=== PATIENT | female | born 1950 | race Caucasian/White ===

== ENCOUNTER 2025-01-20 08:46 | Inpatient (IN) | payer OTHER, MEDICAID ==
[~2025-01-20] VITALS: Ht 160 cm; Wt 79.5 kg
--- NOTE | 2025-01-20 09:05 | ED.PDOC ---
BRASS BOBBIN WINDER HPI Comments THIS IS A 74 YEAR OLD FEMALE PRESENTING TO THE ED WITH CHIEF COMPLAINT OF VAGINAL BLEEDING. DAUGHTER REPORTS THAT THE PATIENT HAS BEEN EXPERIENCING CONTINUOUS VAGINAL BLEEDING FOR THE PAST 3 DAYS. PATIENT RELAYS THAT SHE HAS BEEN EXPERIENCING ASSOCIATED ABDOMINAL CRAMPING, HEADACHE, AND GENERALIZED WEAKNESS. DAUGHTER STATES THAT THE PATIENT HAS ALREADY MADE AN APPOINTMENT WITH DR. CLIFF CORDOVA DUE TO HAVING THIS CONCERN INTERMITTENTLY FOR THE PAST MONTH, ONLY WORSENING FOR THE PAST 3 DAYS. PATIENT DENIES ANY FALL, INJURY, CHEST PAIN, SOB, DIZZINESS, N/V, DYSURIA, OR RECTAL BLEEDING. NO OTHER SYMPTOMS REPORTED AT THIS TIME OF CARE. Chief Complaint: Vaginal Bleed Time Seen by MD: 09:00 Reviewed Notes: Nurses Notes, Medications, Allergies Allergies: Coded Allergies: Iodine (Verified Allergy, Unknown, 01/20/25) Information Source: Patient, Relative (Child) Mode of Arrival: Ambulatory Timing: Days, Weeks Prehospital treatment: None Severity: Moderate Bleeding Quality: Bright Red Onset Of Mass/Bleeding: Spontaneous Sexual Activity: Neither Last Consensual Spade: None Control: None Associated Signs and Symptoms: Vaginal Bleeding, Abdominal Pain, Cramping Past Medical History PAST MEDICAL HISTORY: Anemia, CVA, DM, High Lipids, HTN, Seizures Surgical History (Other): 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: Denies all COMBINER OPERATOR Hx Family History Family History: Reviewed,noncontributory to illness Social History Smoker: Non-Smoker Alcohol: Denies ETOH Use Drugs: Denies Drug Use Lives In: Home, [facility] Constitutional: reports: weakness; denies: chills, diaphoresis, fatigue, fever, malaise, sweats, others EENTM: denies: blurred vision, double vision, ear bleeding, ear discharge, ear drainage, ear pain, ear ringing, eye pain, eye redness, hearing loss, mouth pain, mouth swelling, nasal discharge, nose bleeding, nose congestion, nose pain, photophobia, tearing, throat pain, throat swelling, voice changes, others Respiratory: denies: cough, hemoptysis, orthopnea, SOB at rest, shortness of breath, SOB with excertion, stridor, wheezing, others Cardiovascular: denies: chest pain, dizzy spells, diaphoresis, Dyspnea on exertion, edema, irregular heart beat, left arm pain, lightheadedness, palpitations, PND, syncope, others Gastrointestinal: denies: abdomen distended, abdominal pain, blood streaked bowels, constipated, diarrhea, dysphagia, difficulty swallowing, hematemesis, melena, nausea, poor appetite, poor fluid intake, rectal bleeding, rectal pain, vomiting, others Genitourinary: reports: abnormal vagina bleeding, pain (PELVIC ); denies: burning, dyspareunia, dysuria, flank pain, frequency, hematuria, incontinence, , vagina discharge, urgency, others Neurological: reports: headache; denies: dizziness, fainting, left sided numbness, left sided weakness, numbness, paresthesia, pre-existing deficit, right sided numbness, right sided weakness, seizure, speech problems, tingling, tremors, weakness, others Musculoskeletal: denies: back pain, gout, joint pain, joint swelling, muscle pain, muscle stiffness, neck pain, others Integumetry: denies: bruises, change in color, change in hair/nails, dryness, laceration, lesions, lumps, rash, wounds, others Allergic/Immunocompromised: denies: Difficulty Healing, Frequent Infections, Hives, Itching, others Hematologic/Lymphatic: denies: anemia, blood clots, easy bleeding, easy bruising, swollen glands, others Endocrine: denies: excessive hunger, excessive sweating, excessive thirst, excessive urination, flushing, intolerance to cold, intolerance to heat, unexplained weight gain, unexplained weight loss, others Psychiatric: denies: anxiety, bipolar disorder, depression, hopeless, panic disorder, schizophrenia, sleepless, suicidal, others All Other Systems: Reviewed and Negative Physical Exam General Appearance: No Apparent Distress, Normal HEENT: Normal ENT Inspection, PERRL/EOMI, Pharynx Normal, TMs Normal Neck: Full Range of Motion, Non-Tender, Normal, Normal Inspection Respiratory: Chest Non-Tender, Lungs Clear, No Accessory Muscle Use, No Respiratory Distress, Normal Breath Sounds Cardiovascular: No Edema, No JVD, No Murmur, No Gallop, Normal Peripheral Pulses, Regular Rate/Rhythm Breast Exam: Deferred Gastrointestinal: No Organomegaly, Non Tender, No Pulsatile Mass, Normal Bowel Sounds, Soft Genitalia: Deferred Pelvic: Normal External Exam, Tender Uterus, Vaginal Bleeding (WITH PELVIC EXAM, NO VAGINAL BLOOD CLOTS. ) Rectal: Deferred Extremities: No calf tenderness, Normal capillary refill, Normal inspection, Normal range of motion, Non-tender, No pedal edema Musculoskeletal : Apperance: Normal Neurologic: Alert, box finisher II-XII nml as Tested, No Motor Deficits, Normal Affect, Normal Mood, No Sensory Deficits Cerebellar Function: Normal Reflexes: Normal Skin: Dry, Normal Color, Warm Peripheral Pulses: 2+ carotid (R), 2+ carotid (L) Lymphatic: No Adenopathy Was a procedure done? Was a procedure done?: Yes Sedation Sedation?: No Pelvic Exam Vaginal Discharge: None Vaginal Lesions: None Bleeding Quality: Bright Red Cervix: os closed Differential Diagnosis (COMBINER OPERATOR) Vaginal Bleeding: Blood Loss Anemia, Myomatous Uterus, UTI, Other (DUB) Vaginal Discharge: UTI X-Ray, Labs, Meds, VS Vital Signs Date Time Temp Pulse Resp B/P (MAP) Pulse Ox O2 Delivery O2 Flow Rate FiO2 01/20/25 12:27 81 18 98 Room Air* 0 21 01/20/25 11:51 61 18 96 Room Air 01/20/25 11:51 81 18 131/69 (89) 98 01/20/25 08:48 98.1 74 18 161/80 93 98.1 Lab Test 01/20/25 09:11 01/20/25 09:04 Range/Units White Blood Count 7.2 4.4-10.8 10^3/uL Red Blood Count 5.35 H 4.0-5.20 10^6/uL Hemoglobin 14.9 12.2-16.2 g/dL Hematocrit 44.2 36.0-46.0 % Mean Corpuscular Volume 82.6 80.0-100.0 fL Mean Corpuscular Hemoglobin 27.9 L 28.0-32.0 pg Mean Corpuscular Hemoglobin Concent 33.8 32.0-36.0 g/dL Red Cell Distribution Width 14.1 11.8-14.3 % Platelet Count 178 140-450 10^3/uL Mean Platelet Volume 9.1 6.9-10.8 fL Neutrophils (%) (Auto) 67.5 37.0-80.0 % Lymphocytes (%) (Auto) 18.0 10.0-50.0 % Monocytes (%) (Auto) 10.7 0.0-12.0 % Eosinophils (%) (Auto) 2.9 0.0-7.0 % Basophils (%) (Auto) 0.9 0.0-2.0 % Neutrophils # (Auto) 4.9 1.6-8.6 10 ^3/uL Lymphocytes # (Auto) 1.3 0.4-5.4 10 ^3/uL Monocytes # (Auto) 0.8 0-1.3 10 ^3/uL Eosinophils # (Auto) 0.2 0-0.8 10 ^3/uL Basophils # (Auto) 0.1 0-0.2 10 ^3/uL Nucleated Red Blood Cells 0.1 % Prothrombin Time 11.7 9.3-11.8 sec Prothrombin Time INR 1.12 0.9-1.15 Sodium Level 140 136-145 mmol/L Potassium Level 4.0 3.5-5.1 mmol/L Chloride Level 104 98-107 mmol/L Carbon Dioxide Level 26 20-31 mmol/L Anion Gap 10 5-15 Blood Urea Nitrogen 22 9-23 mg/dL Creatinine 1.15 H 0.550-1.02 mg/dL Glomerular Filtration Rate Calc 50 >90 mL/min BUN/Creatinine Ratio 19.1 10.0-20.0 Serum Glucose 189 H 74-106 mg/dL Calcium Level 9.9 8.7-10.4 mg/dL Total Bilirubin 0.5 0.2-1.0 mg/dL Aspartate Amino Transferase (AST) 18 13-40 U/L Alanine Aminotransferase (ALT) 14 7-40 U/L Alkaline Phosphatase 66 46-116 U/L Total Protein 6.9 5.7-8.2 g/dL Albumin 4.5 3.2-4.8 g/dL Urine Color Light-red Yellow Urine Clarity Ex.turbid Clear Urine pH 5.5 5.0-9.0 Urine Specific [place] 1.019 1.001-1.035 Urine Protein 1+ H Negative Urine Ketones Negative Negative Urine Blood 3+ H Negative /uL Urine Nitrite Negative Negative Urine Bilirubin Negative Negative Urine Urobilinogen Normal Negative mg/dL Urine Leukocyte Esterase 2+ Negative /uL Urine RBC 2394 0 - 4 /hpf Urine WBC Clumps Present None Seen /hpf Urine Microscopic WBC 980 H 0-5 /HPF Urine Squamous Epithelial Cells Few <5 /hpf Urine Bacteria None seen None Seen /hpf Urine Hyaline Casts Many 0 - 2 /lpf Urine Glucose 4+ H Normal mg/dL Current Medications Medications (Trade) Dose Ordered Sig/Melecio Route Start Time Stop Time Status Last Admin Sodium Chloride 500 ml @ 500 mls/hr Q1H ONCE IV 01/20/25 11:30 01/20/25 12:29 DC 01/20/25 11:54 Ceftriaxone Sodium 50 ml @ 100 mls/hr ONCE ONCE IV 01/20/25 11:30 01/20/25 11:59 DC 01/20/25 11:41 Sodium Chloride 1,000 ml @ 150 mls/hr Q6H40M ONCE IV 01/20/25 11:30 01/20/25 18:09 01/20/25 11:55 PATIENT: ADRIEL OMALLEYT: [id number]: [id number] : 1950 LOC: ER ROOM / BED: / AGE / SEX: 74 / F ADM STATUS: REG ER SERVICE 3 ORDERING PHYSICIAN: NITHIN SORENSEN PROCEDURE(s): PELUS - PELVIC REASON: VAGINAL BLEEDING ORDER NUMBER(s): [id number], ACCESSION NUMBER(s): [id number] INDICATION: VAGINAL BLEEDING TECHNIQUE: Multiple real-time grayscale transabdominal sonographic images along with color and duplex Doppler of the uterus and ovaries were obtained. COMPARISON: None FINDINGS: The uterus measures 6.5 x 4.0 x 2.5 cm. The endometrial stripe measures 0.2 cm. Right ovary is not visualized Left ovary measures 2.1 x 1.3 x 1.7 cm with normal Doppler color flow IMPRESSION: 1. Grossly unremarkable pelvic ultrasound. ATED BY: TAVON DONOHUE MD DICTATED DATE/TIME: 01/20/251044 SIGNED BY: TAVON DONOHUE MD SIGNED DATE/TIME: 01/20/251044 CC: X-Ray, Labs, Meds, VS Comment EXTERNAL MEDICAL RECORDS REVIEWED: [NONE] INDEPENDENT HISTORIANS: DAUGHTER SOCIAL DETERMINANTS OF HEALTH: [NONE] LABS ORDERED: NONE REVIEWED AND INTERPRETED RESULTS: NONE IMAGING ORDERED: NONE TREATMENTS ORDERED: 0.9 NS, ROCEPHIN 1GM IVPB PROCEDURES PERFORMED: NONE CRITICAL CARE TIME: NONE I HAVE DISCUSSED THE PATIENT WITH THE ATTENDING PHYSICIAN DR. BUSTOS AND HE AGREES WITH THE PATIENT'S PLAN OF CARE AND DISPOSITION. BASED ON HISTORY OF PRESENT ILLNESS, PHYSICAL EXAM, AND HISTORY OF RECURRENT VAGINAL BLEEDING, PATIENT WILL BE ADMITTED TO THE HOSPITAL FOR FURTHER IN PATIENT EVALUATION AND TREATMENT. Time of 1ST Reevaluation: 11:10 Reevaluation 1ST: Unchanged Patient Education/Counseling: Diagnosis, Treatment Family Education/Counseling: Diagnosis, Treatment Departure 1 Departure Time of Disposition: 11:10 Impression: Primary Impression: Vaginal bleeding Additional Impression: Complicated UTI (urinary tract infection) Disposition: 09 ADMITTED INPATIENT Condition: Serious Critical Care Note Critical Care Time?: No Stability Stability form required: Yes Unstable for transfer: Requires medication, ED Physician Assesment, Possible rapid decline Heart Score Heart Score: Heart Score Response (Comments) Value History N/A 0 EKG N/A 0 Age N/A 0 Risk Factors N/A 0 Troponin N/A 0 Total 0 I personally scribed for NITHIN SORENSEN ([email or web address]) on 01/20/25 at 09:05. Electronically submitted by Nael Gillette ([email or web address]). I personally scribed for NITHIN SORENSEN ([email or web address]) on 01/20/25 at 11:11. Electronically submitted by Nael Gillette ([email or web address]). NITHIN SORENSEN Jan 20, 2025 09:05
[2025-01-20 09:37] LABS: Hematocrit 44.2 % (36.0-46.0); Hemoglobin 14.9 g/dL (12.2-16.2); Mean Corpuscular Hemoglobin 27.9 pg (28.0-32.0); Mean Corpuscular Volume 82.6 fL (80.0-100.0); Nucleated Red Blood Cells % 0.1 %
[2025-01-20 09:52] LABS: Alanine Aminotransferase 14 U/L (7-40); Alkaline Phosphatase 66 U/L (46-116); Anion Gap 10 (5-15); BUN/Creatinine Ratio 19.1 (10.0-20.0); Blood Urea Nitrogen 22 mg/dL (9-23); Calcium 9.9 mg/dL (8.7-10.4); Carbon Dioxide 26 mmol/L (20-31); Chloride 104 mmol/L (98-107); Potassium 4.0 mmol/L (3.5-5.1); Sodium 140 mmol/L (136-145); Total Protein 6.9 g/dL (5.7-8.2)
[2025-01-20 09:53] LABS: Albumin 4.5 g/dL (3.2-4.8); Bilirubin, Total 0.5 mg/dL (0.2-1.0); Glucose 189 mg/dL (74-106); INR 1.12 (0.9-1.15); Prothrombin Time 11.7 sec (9.3-11.8)
[2025-01-20 10:12] LABS: Urine Protein, UAD 1+ (Negative); Urine WBC Clumps PRESENT /hpf (None Seen)
--- NOTE | 2025-01-20 10:47 | DVH ---
INDICATION: VAGINAL BLEEDING TECHNIQUE: Multiple real-time grayscale transabdominal sonographic images along with color and duplex Doppler of the uterus and ovaries were obtained. COMPARISON: None FINDINGS: The uterus measures 6.5 x 4.0 x 2.5 cm. The endometrial stripe measures 0.2 cm. Right ovary is not visualized Left ovary measures 2.1 x 1.3 x 1.7 cm with normal Doppler color flow IMPRESSION: 1. Grossly unremarkable pelvic ultrasound.
[2025-01-20] MEDS: cefTRIAXone 1GM/50ML D5W 50 ML IV ONE (11:41)
[2025-01-20] MEDS: SODIUM CHLORIDE 0.9% 500 ML IV ONE (11:54)
[2025-01-20] MEDS: SODIUM CHLORIDE 0.9% 1,000 ML IV ONE (11:55)
[2025-01-20] MEDS ORDERED: DOCUSATE SOD 100 MG CAP PO PRN (12:15)
[2025-01-20] MEDS ORDERED: HYDROcodone-ACET 5/325MG TAB PO PRN (12:15)
[2025-01-20] MEDS ORDERED: ACETAMINOPHEN 325 MG TAB PO PRN (12:15)
[2025-01-20] MEDS ORDERED: ONDANSETRON HCL 4 MG/2 ML VIAL IV PRN (12:15)
[2025-01-20 12:27] VITALS: PULSE 81; RESP 18; O2SAT 98
[2025-01-20] MEDS ORDERED: CITA10TA5 PO (12:33)
[2025-01-20] MEDS ORDERED: LEVE500T3 PO (12:33)
[2025-01-20] MEDS ORDERED: GAB100C PO (12:33)
[2025-01-20] MEDS ORDERED: FENO48TA13 PO (12:33)
[2025-01-20] MEDS ORDERED: DAPA1TAB4 PO (12:33)
[2025-01-20] MEDS ORDERED: APIX5TAB PO (12:33)
[2025-01-20] MEDS ORDERED: DONE5TAB80 PO (12:33)
[2025-01-20] MEDS ORDERED: ATOR-47 PO (12:33)
[2025-01-20] MEDS ORDERED: MEMA7CAP8 PO (12:33)
[2025-01-20] MEDS ORDERED: ROPI0.5T26 PO (12:33)
--- NOTE | 2025-01-20 12:51 | DVHHP2 ---
History of Present Illness Reason for Visit: Vaginal bleeding History of Present Illness Carlie Rothman is a 74-year-old female with past medial history of hypertension, hyperlipidemia, diabetes, seizures, atrial fibrillation and CVA, who came to the hospital for vaginal bleeding. Patient states she has been experiencing intermi ttent, light, vaginal bleeding for 3 months. She has an appointment with an CURRICULUM AND ASSESSMENT COORDINATOR on 02/04/2025. She states she began bleeding again 3 days ago and it is heavier than normal, did not stop, and she began passing clots last night which scared her and prompted her to come to the hospital. Patient is on Eliquis due to her atrial fibrillation and H/O CVA, she is followed by Dr. Carter for cardiology. 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: CVA Endocrine: Diabetes Smoke: No ALCOHOL: none Drugs: None Lives: Other (Assisted living) Review of Systems Constitutional: No: Fever, Chills, Sweats, Weakness, Malaise, Other Eyes: No: Pain, Vision change, Conjunctivae inflammation, Eyelid inflammation, Other, Redness ENT: No: Ear pain, Ear discharge, Nose pain, Nose discharge, Nose congestion, Mouth pain, Mouth swelling, Throat pain, Throat swelling, Other Respiratory: No: Cough, Dry, Shortness of breath, SOB with excertion, Wheezing, Hemoptysis, Pleuritic Pain, Sputum, Wheezing, Other Cardiovascular: No: Chest Pain, Palpitations, Orthopnea, Paroxysmal Noc. Dyspnea, Edema, Lt Headedness, Other Gastrointestinal: Abdominal Pain, Other (vaginal bleeding); No: Nausea, Vomiting, Diarrhea, Constipation, Melena, Hematochezia Genitourinary: No Dysuria, No Frequency, No Incontinence, No Hematuria, No Retention, No Other Musculoskeletal: No: other, neck pain, shoulder pain, arm pain, back pain, hand pain, leg pain, foot pain Skin: No: Rash, Lesions, Jaundice, Bruising, Other Neurological: No: Weakness, Numbness, Incoordination, Change in speech, Confusion, Seizures, Other Allergies: Coded Allergies: Iodine (Verified Allergy, Unknown, 01/20/25) Medications Current Medications Medications Dose Ordered Sig/Melecio Route Start Time Stop Time Status Last Admin Dose Admin Acetaminophen/ Hydrocodone Bitart 1 tab Q4HP PRN PO 01/20/25 12:15 UNV Ondansetron HCl 4 mg Q4HP PRN IV 01/20/25 12:15 UNV Docusate Sodium 100 mg BIDPRN PRN PO 01/20/25 12:15 UNV Acetaminophen 650 mg Q6HP PRN PO 01/20/25 12:15 UNV Exam Vital Signs Vital Signs Date Time Temp Pulse Resp B/P (MAP) Pulse Ox O2 Delivery O2 Flow Rate FiO2 01/20/25 12:27 81 18 98 Room Air* 0 21 01/20/25 11:51 131/69 (89) 01/20/25 08:48 98.1 98.1 General Appearance: Alert, Oriented X3, Cooperative, mild distress HEENT: Atraumatic, PERRLA Respiratory: Clear to auscultation, Normal air movement Cardiovascular: Regular rate, Normal S1, Normal S2, No murmurs Abdominal: Normal bowel sounds, Soft Extremities: No clubbing, No cyanosis, No edema, Normal pulses, No tenderness/swelling Skin: No rashes, No breakdown, No significant lesion Neuro: Normal gait, Normal speech, Strength at 5/5 X4 ext, Normal tone Psych/Mental Status: Mental status NL, Mood NL Labs/Xrays Labs Test 01/20/25 09:11 01/20/25 09:04 Range/Units White Blood Count 7.2 4.4-10.8 10^3/uL Red Blood Count 5.35 H 4.0-5.20 10^6/uL Hemoglobin 14.9 12.2-16.2 g/dL Hematocrit 44.2 36.0-46.0 % Mean Corpuscular Volume 82.6 80.0-100.0 fL Mean Corpuscular Hemoglobin 27.9 L 28.0-32.0 pg Mean Corpuscular Hemoglobin Concent 33.8 32.0-36.0 g/dL Red Cell Distribution Width 14.1 11.8-14.3 % Platelet Count 178 140-450 10^3/uL Mean Platelet Volume 9.1 6.9-10.8 fL Neutrophils (%) (Auto) 67.5 37.0-80.0 % Lymphocytes (%) (Auto) 18.0 10.0-50.0 % Monocytes (%) (Auto) 10.7 0.0-12.0 % Eosinophils (%) (Auto) 2.9 0.0-7.0 % Basophils (%) (Auto) 0.9 0.0-2.0 % Neutrophils # (Auto) 4.9 1.6-8.6 10 ^3/uL Lymphocytes # (Auto) 1.3 0.4-5.4 10 ^3/uL Monocytes # (Auto) 0.8 0-1.3 10 ^3/uL Eosinophils # (Auto) 0.2 0-0.8 10 ^3/uL Basophils # (Auto) 0.1 0-0.2 10 ^3/uL Nucleated Red Blood Cells 0.1 % Prothrombin Time 11.7 9.3-11.8 sec Prothrombin Time INR 1.12 0.9-1.15 Sodium Level 140 136-145 mmol/L Potassium Level 4.0 3.5-5.1 mmol/L Chloride Level 104 98-107 mmol/L Carbon Dioxide Level 26 20-31 mmol/L Anion Gap 10 5-15 Blood Urea Nitrogen 22 9-23 mg/dL Creatinine 1.15 H 0.550-1.02 mg/dL Glomerular Filtration Rate Calc 50 >90 mL/min BUN/Creatinine Ratio 19.1 10.0-20.0 Serum Glucose 189 H 74-106 mg/dL Calcium Level 9.9 8.7-10.4 mg/dL Total Bilirubin 0.5 0.2-1.0 mg/dL Aspartate Amino Transferase (AST) 18 13-40 U/L Alanine Aminotransferase (ALT) 14 7-40 U/L Alkaline Phosphatase 66 46-116 U/L Total Protein 6.9 5.7-8.2 g/dL Albumin 4.5 3.2-4.8 g/dL Urine Color Light-red Yellow Urine Clarity Ex.turbid Clear Urine pH 5.5 5.0-9.0 Urine Specific [place] 1.019 1.001-1.035 Urine Protein 1+ H Negative Urine Ketones Negative Negative Urine Blood 3+ H Negative /uL Urine Nitrite Negative Negative Urine Bilirubin Negative Negative Urine Urobilinogen Normal Negative mg/dL Urine Leukocyte Esterase 2+ Negative /uL Urine RBC 2394 0 - 4 /hpf Urine WBC Clumps Present None Seen /hpf Urine Microscopic WBC 980 H 0-5 /HPF Urine Squamous Epithelial Cells Few <5 /hpf Urine Bacteria None seen None Seen /hpf Urine Hyaline Casts Many 0 - 2 /lpf Urine Glucose 4+ H Normal mg/dL TECHNIQUE: Multiple real-time grayscale transabdominal sonographic images along with color and duplex Doppler of the uterus and ovaries were obtained. FINDINGS: The uterus measures 6.5 x 4.0 x 2.5 cm. The endometrial stripe measures 0.2 cm. Right ovary is not visualized Left ovary measures 2.1 x 1.3 x 1.7 cm with normal Doppler color flow IMPRESSION: 1. Grossly unremarkable pelvic ultrasound. SEPSIS Sepsis Screen Date sepsis recognized/suspect: Jan 20, 2025 Time Sepsis recognized/suspect: 1228 Recent Procedure: No On Antibiotic Therapy: No Respiratory Rate >20: No Heart Rate >90: No Temp<36 C (96.8 F) or >38.3 C: No SBP <90 or MAP <65 mmHG: No New Acute Mental Status Change: No Is the patient on CPAP, BIPAP,: No Physician Orders Pelvic (01/20/25 09:04) Heplock Iv (01/20/25 ) Urine Bacterial Culture (01/20/25 11:22) Sodium Chloride 0.9% (01/20/25 11:30) Admit (01/20/25 12:14) Code Status (01/20/25 12:14) 2 Gm Sodium Diet (01/20/25 Lunch) Hydrocodone-Acet 5/325mg Tab (Dinosaur 5/32 (01/20/25 12:15) Ondansetron Hcl (Zofran) (01/20/25 12:15) Docusate Sodium Capsule (Colace Capsule) (01/20/25 12:15) Complete Blood Count (01/21/25 04:00) Comprehensive Metabolic Panel (01/21/25 04:00) Condition: Serious (01/20/25 12:14) Acetaminophen Tablet (Tylenol Tablet) (01/20/25 12:15) * Clinical Product Specialist Consultation (01/20/25 12:14) Vital Signs Date Time Temp Pulse Resp B/P (MAP) Pulse Ox O2 Delivery O2 Flow Rate FiO2 01/20/25 12:27 81 18 98 Room Air* 0 21 01/20/25 11:51 61 18 96 Room Air 01/20/25 11:51 81 18 131/69 (89) 98 01/20/25 08:48 98.1 74 18 161/80 93 98.1 Laboratory Tests Test 01/20/25 09:11 White Blood Count 7.2 10^3/uL (4.4-10.8) Medications Medications Dose Ordered Sig/Melecio Route Start Time Stop Time Status Last Admin Dose Admin Ceftriaxone Sodium 50 ml @ 100 mls/hr ONCE ONCE IV 01/20/25 11:30 01/20/25 11:59 DC 01/20/25 11:41 100 MLS/HR Sodium Chloride 500 ml @ 500 mls/hr Q1H ONCE IV 01/20/25 11:30 01/20/25 12:29 DC 01/20/25 11:54 500 MLS/HR Sodium Chloride 1,000 ml @ 150 mls/hr Q6H40M ONCE IV 01/20/25 11:30 01/20/25 18:09 01/20/25 11:55 150 MLS/HR Assessment/Plan Assessment/Plan Assessment: Vaginal bleeding, Hyperglycemia, Hypertension, Hyperlipidemia, Diabetes, Seizures, Plan: Admit to Med-Surg, CURRICULUM AND ASSESSMENT COORDINATOR consult, Manage/Monitor H&H closely, Accu checks Q AC&HS with sliding scale, Home medications reconciled, Plan discussed with: Patient My Orders Orders - PEGGY [facility] Procedure Category Date Status Time Admit ADMIT 01/20/25 Transmitted 12:14 Code Status CODE 01/20/25 Transmitted 12:14 2 Gm Sodium Diet DIET 01/20/25 Transmitted Lunch Hydrocodone-Acet PHA 01/20/25 Logged 5/325mg Tab (Dinosaur 12:15 Ondansetron Hcl PHA 01/20/25 Logged (Zofran) 12:15 Docusate Sodium PHA 01/20/25 Logged Capsule (Colace 12:15 Complete Blood Count LAB 01/21/25 Verified 04:00 Comprehensive LAB 01/21/25 Verified Metabolic Panel 04:00 Condition: Serious ZACH 01/20/25 In Process 12:14 Acetaminophen Tablet PHA 01/20/25 Logged (Tylenol Tablet) 12:15 * Clinical Product Specialist Consultation CONS 01/20/25 Transmitted 12:14 Date of Service: Jan 20, 2025 Billing Provider: PEGGY KAISER Common Visit Codes: [id number] INP/OBS CARE (MOD) PEGGY KAISER Jan 20, 2025 12:51
[2025-01-20] MEDS ORDERED: DEXTROSE (50%) 50ML SYRG IV PRN (17:45)
[2025-01-20 19:30] VITALS: PULSE 74; RESP 18; O2SAT 94
[2025-01-20] MEDS: ACCU-CHEK COMFORT CURVE STRIP VI SCH (22:00)
[2025-01-20] MEDS: levETIRAcetam 500 MG TAB PO SCH (22:47)
[2025-01-20] MEDS: APIXABAN 5 MG TAB PO SCH (22:47)
[2025-01-20] MEDS: InsuLIN REG 1unit/0.01ml Soln (100units/ml) SC SCH (22:48)
[2025-01-20 23:49] VITALS: BP 155/65; PULSE 62; RESP 18; TEMP 98.2; O2SAT 91
[2025-01-21] VITALS (8 sets, daily range): BP systolic 152–163; BP diastolic 65–89; PULSE 62–86; RESP 14–18; TEMP 97.9–98.6; O2SAT 91–95
[2025-01-21 05:52] LABS: Hematocrit 42.2 % (36.0-46.0); Hemoglobin 14.2 g/dL (12.2-16.2); Mean Corpuscular Hemoglobin 27.7 pg (28.0-32.0); Mean Corpuscular Volume 82.2 fL (80.0-100.0); Nucleated Red Blood Cells % 0.1 %
[2025-01-21 06:18] LABS: Alanine Aminotransferase 12 U/L (7-40); Albumin 4.1 g/dL (3.2-4.8); Alkaline Phosphatase 60 U/L (46-116); Anion Gap 11 (5-15); BUN/Creatinine Ratio 24.0 (10.0-20.0); Calcium 8.9 mg/dL (8.7-10.4); Carbon Dioxide 24 mmol/L (20-31); Potassium 3.7 mmol/L (3.5-5.1); Sodium 142 mmol/L (136-145); Total Protein 6.5 g/dL (5.7-8.2)
[2025-01-21 06:19] LABS: Bilirubin, Total 0.4 mg/dL (0.2-1.0)
[2025-01-21 06:25] LABS: Blood Urea Nitrogen 25 mg/dL (9-23); Chloride 107 mmol/L (98-107); Glucose 150 mg/dL (74-106)
[2025-01-21] MEDS: InsuLIN REG 1unit/0.01ml Soln (100units/ml) SC SCH (06:41)
[2025-01-21] MEDS: MEMANTINE HYDROCHLORIDE PO SCH (09:37)
[2025-01-21] MEDS: Dapagliflozin Propanediol (Farxiga) 10 MG TABLET PO SCH (09:37)
[2025-01-21] MEDS: ROPINIROLE HYDROCHLORIDE 0.5 MG PO SCH (09:37)
[2025-01-21] MEDS: DONEPEZIL HYDROCHLORIDE 5 MG TAB PO SCH (09:43)
[2025-01-21] MEDS: CITALOPRAM HYDROBR 20 MG TAB PO SCH (09:45)
--- NOTE | 2025-01-21 14:10 | DVHPN2 ---
Subjective Bleeding improving. Reviewed: H&P Changes from previous H/P or p: No Changes General: Per HPI Eyes: No Pain, No Vision change, No Conjunctivae inflammation, No Eyelid inflammation, No Other, No Redness ENT: No Ear pain, No Ear discharge, No Nose pain, No Nose discharge, No Nose congestion, No Mouth pain, No Mouth swelling, No Throat pain, No Throat swelling, No Other Cardiovascular: No Chest Pain, No Palpitations, No Orthopnea, No Paroxysmal Noc. Dyspnea, No Edema, No Lt Headedness, No Other Respiratory: No Cough, No Dry, No Shortness of breath, No SOB with excertion, No Wheezing, No Hemoptysis, No Pleuritic Pain, No Sputum, No Other Gastrointestinal: No Nausea, No Vomiting; Abdominal Pain; No Diarrhea, No Constipation, No Melena, No Hematochezia; Other (vaginal bleeding) Genitourinary: No Dysuria, No Frequency, No Incontinence, No Hematuria, No Retention, No Other Musculoskeletal: No other, No neck pain, No shoulder pain, No arm pain, No back pain, No hand pain, No leg pain, No foot pain Skin: No Rash, No Lesions, No Jaundice, No Bruising, No Other Objective Vitals Vital Signs Date Time Temp Pulse Resp B/P (MAP) Pulse Ox O2 Delivery O2 Flow Rate FiO2 01/21/25 13:00 98.6 67 16 155/88 (110) 95 98.6 01/21/25 08:24 Room Air* 0 21 Intake/Output Intake and Output 01/21/25 07:00 Intake Total 5200 ml Balance 5200 ml Intake Oral 150 ml IV Total 5050 ml # Voids 2 Exam GEN: Healthy appearing, well-developed, NAD. HEENT: NC/AT; MMM. CV: RRR, no m/r/g. LUNGS: CTAB, no w/r/c. ABD: Soft, NT/ND, NBS, no masses or organomegaly. EXT: skin Warm, well perfused. no rashes. No clubbing, cyanosis, or edema. NEURO: Ambulating with no limitations. No focal deficits. Medications Current Medications Medications Dose Ordered Sig/Melecio Route Start Time Stop Time Status Last Admin Dose Admin Acetaminophen/ Hydrocodone Bitart 1 tab Q4HP PRN PO 01/20/25 12:15 Ondansetron HCl 4 mg Q4HP PRN IV 01/20/25 12:15 Docusate Sodium 100 mg BIDPRN PRN PO 01/20/25 12:15 Acetaminophen 650 mg Q6HP PRN PO 01/20/25 12:15 Donepezil HCl 5 mg DAILY PO 01/21/25 10:00 01/21/25 09:43 5 MG Levetiracetam 500 mg BID PO 01/20/25 22:00 01/21/25 09:43 500 MG Atorvastatin Calcium 80 mg HS PO 01/21/25 22:00 Citalopram Hydrobromide 10 mg DAILY PO 01/21/25 10:00 01/21/25 09:45 10 MG Patient Own Medication 1 tab DAILY PO 01/21/25 10:00 Patient Own Medication 1 tab DAILY PO 01/21/25 10:00 Patient Own Medication 1 cap DAILY PO 01/21/25 10:00 Patient Own Medication 1 tab DAILY PO 01/21/25 10:00 Diagnostic Test (Pha) 1 strip ACHS 01/20/25 22:00 01/21/25 12:01 1 STRIP Insulin Human Regular HS SC 01/20/25 22:00 01/20/25 22:48 4 UNITS Insulin Human Regular AC SC 01/21/25 07:00 01/21/25 12:01 6 UNITS Dextrose 50 ml UD PRN IV 01/20/25 17:45 Apixaban 5 mg BID PO 01/20/25 22:00 01/21/25 09:43 5 MG Laboratory Results Laboratory Tests 01/21/25 05:30 Chemistry Test 01/21/25 05:30 Albumin 4.1 g/dL (3.2-4.8) Calcium Level 8.9 mg/dL (8.7-10.4) Total Protein 6.5 g/dL (5.7-8.2) LFT Test 01/21/25 05:30 Alanine Aminotransferase (ALT) 12 U/L (7-40) Alkaline Phosphatase 60 U/L (46-116) Aspartate Amino Transferase (AST) 16 U/L (13-40) Total Bilirubin 0.4 mg/dL (0.2-1.0) HgA1c, TSH Test 01/21/25 05:30 Hemoglobin A1c 7.6 % A1C (<5.7) H Urinalysis Test 01/20/25 09:04 Urine Color Light-red (Yellow) Urine Clarity Ex.turbid (Clear) Urine pH 5.5 (5.0-9.0) Urine Specific [place] 1.019 (1.001-1.035) Urine Protein 1+ (Negative) H Urine Ketones Negative (Negative) Urine Blood 3+ /uL (Negative) H Urine Nitrite Negative (Negative) Urine Bilirubin Negative (Negative) Urine Urobilinogen Normal mg/dL (Negative) Urine Leukocyte Esterase 2+ /uL (Negative) Urine RBC 2394 /hpf (0 - 4) Urine WBC Clumps Present /hpf (None Seen) Urine Microscopic WBC 980 /HPF (0-5) H Urine Squamous Epithelial Cells Few /hpf (<5) Urine Bacteria None seen /hpf (None Seen) Urine Hyaline Casts Many /lpf (0 - 2) Urine Glucose 4+ mg/dL (Normal) H Labs and/or images reviewed: Labs reviewed by me, Image(s) reviewed by me Assessment/Plan Assessment/Plan Carlie Rothman is a 74-year-old female with past medial history of hypertension, hyperlipidemia, diabetes, seizures, atrial fibrillation and CVA, who came to the hospital for vaginal bleeding. Patient states she has been experiencing intermittent, light, vaginal bleeding for 3 months. She has an appointment with an THERMO PROCESSOR on 02/04/2025. She states she began bleeding again 3 days ago and it is heavier than normal, did not stop, and she began passing clots last night which scared her and prompted her to come to the hospital. Patient is on Eliquis due to her atrial fibrillation and H/O CVA, she is followed by Dr. Carter for cardiology. 01/21: Waiting for global chief creative officer consult, patient stable, vitals stable mostly, blood pressure on the higher side/elevated. Doing well. Hemoglobin 14.9-14.2 today. Creatinine and renal function stable. A1c 7.6. UA is concerning for infection with leuks /WBC . glucosuria due to dapagliflozin. Pelvic ultrasound yesterday was unremarkable. supervisor of research to evaluate today. Patient on Eliquis for AFib and was not stopped. But hemoglobin is stable. We will continue for now. We will need stool occult test. Vaginal bleeding, Hyperglycemia, Hypertension, Hyperlipidemia, Diabetes, Seizures, patch press operator consult Continue home meds IV fluids SSI a.c. HS mild Type and cross Diet diabetic Med surge Full code Plan discussed with: Patient Date of Service: Jan 21, 2025 Billing Provider: KRISTEN FARLEY MD Common Visit Codes: [id number] INP/OBS CARE(HIGH) KRISTEN FARLEY MD Jan 21, 2025 14:10
[2025-01-21] MEDS: ATORVASTATIN 20 MG TAB PO SCH (23:04)
[2025-01-22] VITALS (7 sets, daily range): BP systolic 117–189; BP diastolic 58–90; PULSE 61–86; RESP 12–18; TEMP 36.6; O2SAT 90–96
[2025-01-22 06:09] LABS: Hematocrit 42.8 % (36.0-46.0); Hemoglobin 14.6 g/dL (12.2-16.2); Mean Corpuscular Hemoglobin 28.3 pg (28.0-32.0); Mean Corpuscular Volume 83.0 fL (80.0-100.0); Nucleated Red Blood Cells % 0.1 %
[2025-01-22 06:17] LABS: Chloride 106 mmol/L (98-107); Potassium 3.7 mmol/L (3.5-5.1); Sodium 141 mmol/L (136-145)
[2025-01-22 06:18] LABS: Anion Gap 10 (5-15); Calcium 9.4 mg/dL (8.7-10.4); Carbon Dioxide 25 mmol/L (20-31)
[2025-01-22 06:23] LABS: BUN/Creatinine Ratio 22.3 (10.0-20.0)
[2025-01-22 06:26] LABS: Blood Urea Nitrogen 23 mg/dL (9-23); Glucose 163 mg/dL (74-106)
--- NOTE | 2025-01-22 08:08 | DVHINCON2 ---
Date of service: Jan 21, 2025 Referring Physician hospitalist Reason for Consultation vag bleeding History of Present Illness pt is admitted for vag bleeding,she has an apt with her sales representative [employer] next week.pelvic us is nl.her last pap was 2yrs ago.she is postmenopausal Past Medical History htn,cva,afib,dm Past Surgical History carpal tunnel surgery Family History na Social History 2 Patient Family History: Alzheimer's disease G8 FATHER FH: polycythemia vera G8 MOTHER Allergies: Coded Allergies: Iodine (Verified Allergy, Unknown, 01/20/25) Home Meds Reported Medications Fenofibrate (FENOFIBRATE) 48 Mg Tab, 1 TAB PO DAILY 01/20/25 Atorvastatin Calcium (ATORVASTATIN CALCIUM) 80 Mg Tab, 1 TAB PO DAILY 01/20/25 Ropinirole Hydrochloride (Ropinirole Hcl) 0.5 Mg Tab, 1 TAB PO DAILY 01/20/25 Donepezil Hydrochloride (DONEPEZIL HCL) 5 Mg Tab, 1 TAB PO DAILY 01/20/25 Apixaban Base (ELIQUIS) 5 Mg Tab, 1 TAB PO BID 01/20/25 Memantine Hydrochloride (Memantine Hydrochloride E) 7 Mg Cap, 1 CAP PO DAILY 01/20/25 Gabapentin (Gabapentin) 100 Mg Cap, 1 CAP PO BID 01/20/25 Citalopram Hydrobromide (Citalopram Hydrobromide) 10 Mg Tab, 1 TAB PO DAILY 01/20/25 Dapagliflozin Propanediol (Farxiga) 10 Mg Tab, 1 TAB PO DAILY 01/20/25 Levetiracetam (Levetiracetam) 500 Mg Tab, 1 TAB PO BID 01/20/25 Current Medications Current Medications Medications (Trade) Dose Ordered Sig/Melecio Route PRN Reason Start Time Stop Time Status Last Admin Donepezil HCl (Aricept Tablet) 5 mg DAILY PO 01/21/25 10:00 01/21/25 09:43 Atorvastatin Calcium (Lipitor) 80 mg HS PO 01/21/25 22:00 01/21/25 23:04 Citalopram Hydrobromide (CeleXA TABLET) 10 mg DAILY PO 01/21/25 10:00 01/21/25 09:45 Patient Own Medication 1 tab DAILY PO 01/21/25 10:00 Patient Own Medication 1 tab DAILY PO 01/21/25 10:00 Patient Own Medication 1 cap DAILY PO 01/21/25 10:00 Patient Own Medication 1 tab DAILY PO 01/21/25 10:00 Amlodipine Besylate (Norvasc Tablet) 5 mg DAILY PO 01/22/25 04:45 01/22/25 05:49 Review of Systems Constitutional: no fever, chill, weight loss HEENT: no eye pain, no hearing loss, no oral lesion, no scleral icterus Heart: no chest pain, no chest pressure Lung: no cough, no dyspnea with exertion Abdomen: no abd pain,n,v or diarrhea : no pain with urination, normal appearing urine Musculoskeletal: no joint pain, no muscle pain Neurological: no seizure, no loss of sensation, no weakness in extremities Pysch: no depression, no anxiety Derm: no rash, no jaundice Vital Signs Vital Signs Date Time Temp Pulse Resp B/P (MAP) Pulse Ox O2 Delivery O2 Flow Rate FiO2 01/22/25 05:49 163/90 01/22/25 05:00 98.4 61 12 90 98.4 01/21/25 20:00 Room Air* 0 21 Physical Exam HEENT: [wnl] NECK: [nl] CARDIAC: [rrr] PULMONARY: [cta] ABDOMEN: soft,nt pelvic-min amt of blood noted,cx nl,uterus nl size ext-no cce Labs/Diagnostic Data Labs Test 01/22/25 05:52 01/22/25 05:32 01/21/25 05:30 01/20/25 09:11 Range/Units POC Glucose 176 H 70-106 mg/dl White Blood Count 7.5 4.4-10.8 10^3/uL Red Blood Count 5.15 4.0-5.20 10^6/uL Hemoglobin 14.6 12.2-16.2 g/dL Hematocrit 42.8 36.0-46.0 % Mean Corpuscular Volume 83.0 80.0-100.0 fL Mean Corpuscular Hemoglobin 28.3 28.0-32.0 pg Mean Corpuscular Hemoglobin Concent 34.1 32.0-36.0 g/dL Red Cell Distribution Width 14.2 11.8-14.3 % Platelet Count 171 140-450 10^3/uL Mean Platelet Volume 8.9 6.9-10.8 fL Neutrophils (%) (Auto) 60.6 37.0-80.0 % Lymphocytes (%) (Auto) 20.7 10.0-50.0 % Monocytes (%) (Auto) 13.8 H 0.0-12.0 % Eosinophils (%) (Auto) 4.2 0.0-7.0 % Basophils (%) (Auto) 0.7 0.0-2.0 % Neutrophils # (Auto) 4.5 1.6-8.6 10 ^3/uL Lymphocytes # (Auto) 1.6 0.4-5.4 10 ^3/uL Monocytes # (Auto) 1.0 0-1.3 10 ^3/uL Eosinophils # (Auto) 0.3 0-0.8 10 ^3/uL Basophils # (Auto) 0.1 0-0.2 10 ^3/uL Nucleated Red Blood Cells 0.1 % Sodium Level 141 136-145 mmol/L Potassium Level 3.7 3.5-5.1 mmol/L Chloride Level 106 98-107 mmol/L Carbon Dioxide Level 25 20-31 mmol/L Anion Gap 10 5-15 Blood Urea Nitrogen 23 9-23 mg/dL Creatinine 1.03 H 0.550-1.02 mg/dL Glomerular Filtration Rate Calc 57 >90 mL/min BUN/Creatinine Ratio 22.3 H 10.0-20.0 Serum Glucose 163 H 74-106 mg/dL Calcium Level 9.4 8.7-10.4 mg/dL Hemoglobin A1c 7.6 H <5.7 % A1C Total Bilirubin 0.4 0.2-1.0 mg/dL Aspartate Amino Transferase (AST) 16 13-40 U/L Alanine Aminotransferase (ALT) 12 7-40 U/L Alkaline Phosphatase 60 46-116 U/L Total Protein 6.5 5.7-8.2 g/dL Albumin 4.1 3.2-4.8 g/dL Prothrombin Time 11.7 9.3-11.8 sec Prothrombin Time INR 1.12 0.9-1.15 Test 01/20/25 09:04 Range/Units Urine Color Light-red Yellow Urine Clarity Ex.turbid Clear Urine pH 5.5 5.0-9.0 Urine Specific [place] 1.019 1.001-1.035 Urine Protein 1+ H Negative Urine Ketones Negative Negative Urine Blood 3+ H Negative /uL Urine Nitrite Negative Negative Urine Bilirubin Negative Negative Urine Urobilinogen Normal Negative mg/dL Urine Leukocyte Esterase 2+ Negative /uL Urine RBC 2394 0 - 4 /hpf Urine WBC Clumps Present None Seen /hpf Urine Microscopic WBC 980 H 0-5 /HPF Urine Squamous Epithelial Cells Few <5 /hpf Urine Bacteria None seen None Seen /hpf Urine Hyaline Casts Many 0 - 2 /lpf Urine Glucose 4+ H Normal mg/dL Primary Diagnosis postmenopausal bleeding Plan pt needs endometrial biopsy and pap to r/o endometrial ca she has an apt next week with her sales representative [employer],recommed fu with her deven .will sign off thank you for this consultation Plan discussed with: Patient Visit Coding OBGYN Date of Service: Jan 21, 2025 Billing Provider: AGUSTINA BLANCA DO CERTIFIED HAND THERAPIST Common Visit Codes: [id number] OBS CARE (HIGH) CERTIFIED HAND THERAPIST Consultation Codes: [id number] CONSULT <55MIN, 21129-D/U INPATIENT CONSULT (HIGH) AGUSTINA BLANCA DO Jan 22, 2025 08:08
[2025-01-22] MEDS ORDERED: DOCU-265 PO (10:45)
[2025-01-22] MEDS ORDERED: FOLI-119 PO (10:45)
[2025-01-22] MEDS ORDERED: FER325T PO (10:45)
--- NOTE | 2025-01-22 10:47 | DVHDS2 ---
Discharge Summary Date of Admission Jan 20, 2025 at 12:14 Date of Discharge: Jan 22, 2025 Labs/Diagnostic Data: Laboratory Results Test 01/22/25 05:52 01/22/25 05:32 01/21/25 05:30 01/20/25 09:11 POC Glucose 176 mg/dl (70-106) White Blood Count 7.5 10^3/uL (4.4-10.8) Red Blood Count 5.15 10^6/uL (4.0-5.20) Hemoglobin 14.6 g/dL (12.2-16.2) Hematocrit 42.8 % (36.0-46.0) Mean Corpuscular Volume 83.0 fL (80.0-100.0) Mean Corpuscular Hemoglobin 28.3 pg (28.0-32.0) Mean Corpuscular Hemoglobin Concent 34.1 g/dL (32.0-36.0) Red Cell Distribution Width 14.2 % (11.8-14.3) Platelet Count 171 10^3/uL (140-450) Mean Platelet Volume 8.9 fL (6.9-10.8) Neutrophils (%) (Auto) 60.6 % (37.0-80.0) Lymphocytes (%) (Auto) 20.7 % (10.0-50.0) Monocytes (%) (Auto) 13.8 % (0.0-12.0) Eosinophils (%) (Auto) 4.2 % (0.0-7.0) Basophils (%) (Auto) 0.7 % (0.0-2.0) Neutrophils # (Auto) 4.5 10 ^3/uL (1.6-8.6) Lymphocytes # (Auto) 1.6 10 ^3/uL (0.4-5.4) Monocytes # (Auto) 1.0 10 ^3/uL (0-1.3) Eosinophils # (Auto) 0.3 10 ^3/uL (0-0.8) Basophils # (Auto) 0.1 10 ^3/uL (0-0.2) Nucleated Red Blood Cells 0.1 % Sodium Level 141 mmol/L (136-145) Potassium Level 3.7 mmol/L (3.5-5.1) Chloride Level 106 mmol/L (98-107) Carbon Dioxide Level 25 mmol/L (20-31) Anion Gap 10 (5-15) Blood Urea Nitrogen 23 mg/dL (9-23) Creatinine 1.03 mg/dL (0.550-1.02) Glomerular Filtration Rate Calc 57 mL/min (>90) BUN/Creatinine Ratio 22.3 (10.0-20.0) Serum Glucose 163 mg/dL (74-106) Calcium Level 9.4 mg/dL (8.7-10.4) Hemoglobin A1c 7.6 % A1C (<5.7) Total Bilirubin 0.4 mg/dL (0.2-1.0) Aspartate Amino Transferase (AST) 16 U/L (13-40) Alanine Aminotransferase (ALT) 12 U/L (7-40) Alkaline Phosphatase 60 U/L (46-116) Total Protein 6.5 g/dL (5.7-8.2) Albumin 4.1 g/dL (3.2-4.8) Prothrombin Time 11.7 sec (9.3-11.8) Prothrombin Time INR 1.12 (0.9-1.15) Test 01/20/25 09:04 Urine Color Light-red (Yellow) Urine Clarity Ex.turbid (Clear) Urine pH 5.5 (5.0-9.0) Urine Specific [place] 1.019 (1.001-1.035) Urine Protein 1+ (Negative) Urine Ketones Negative (Negative) Urine Blood 3+ /uL (Negative) Urine Nitrite Negative (Negative) Urine Bilirubin Negative (Negative) Urine Urobilinogen Normal mg/dL (Negative) Urine Leukocyte Esterase 2+ /uL (Negative) Urine RBC 2394 /hpf (0 - 4) Urine WBC Clumps Present /hpf (None Seen) Urine Microscopic WBC 980 /HPF (0-5) Urine Squamous Epithelial Cells Few /hpf (<5) Urine Bacteria None seen /hpf (None Seen) Urine Hyaline Casts Many /lpf (0 - 2) Urine Glucose 4+ mg/dL (Normal) Other Laboratory Tests 01/22/25 05:32 Brief Hx & Hospital Course: Carlie Rothman is a 74-year-old female with past medial history of hypertension, hyperlipidemia, diabetes, seizures, atrial fibrillation and CVA, who came to the hospital for vaginal bleeding. Patient states she has been experiencing intermittent, light, vaginal bleeding for 3 months. She has an appointment with an WRITER PRODUCER on 02/04/2025. She states she began bleeding again 3 days ago and it is heavier than normal, did not stop, and she began passing clots last night which scared her and prompted her to come to the hospital. Patient is on Eliquis due to her atrial fibrillation and H/O CVA, she is followed by Dr. Carter for cardiology. 01/21: Waiting for dock operations supervisor consult, patient stable, vitals stable mostly, blood pressure on the higher side/elevated. Doing well. Hemoglobin 14.9-14.2 today. Creatinine and renal function stable. A1c 7.6. UA is concerning for infection with leuks /WBC . glucosuria due to dapagliflozin. Pelvic ultrasound yesterday was unremarkable. servomechanism designer to evaluate today. Patient on Eliquis for AFib and was not stopped. But hemoglobin is stable. We will continue for now. We will need stool occult test. 01/22 - patient was seen by Gynecology, vaginal wall does have blood. patient declined any blood or dark melena stools. Hemoglobin repeat a.m. is remaining stable. Gynecology clears patient for outpatient follow up with primary ship harbor pilot. Patient has appointment coming up in February 04 but may need to be seen earlier likely next week will be ideal. We will collect stool occult to be followed up by PCP. Patient is stable for discharge as per plan below. Diagnosis Vaginal bleeding, without severe blood loss anemia acute blood loss anemia ruled out GI occult blood, ruling out Hyperglycemia, Hypertension, Hyperlipidemia, Diabetes, Seizures, discharge plan: - monitor for bleeds, no large volume bleeds, stable to follow up with primary ship harbor pilot - is start ferrous sulfate 325 every other day, patient to remain on bowel regimen docusate 100 mg daily, folate supplements daily. - Follow up with PCP to review discharge. PCP to follow up on stool occult test. - if large volume bleed occurs return to nearest ED. - for elevated blood pressure, Start Coreg 6.25 mg twice daily. Condition at Discharge: Fair Final Diagnosis/Problems List Vaginal bleeding, without severe blood loss anemia acute blood loss anemia ruled out GI occult blood, ruling out Hyperglycemia, Hypertension, Hyperlipidemia, Diabetes, Seizures, Discharge Disposition: Home Discharge Instruct/Medications Diet: Cardiac 2g Na,low cholest Activity: No Restrictions, As Tolerated Follow Up/Referral: See below Medications: See below Scheduled Apixaban Base (Eliquis), 1 TAB PO BID, (Reported) Atorvastatin Calcium (Atorvastatin Calcium), 1 TAB PO DAILY, (Reported) Carvedilol (Carvedilol), 1 TAB PO BID Citalopram Hydrobromide (Citalopram Hydrobromide), 1 TAB PO DAILY, (Reported) Dapagliflozin Propanediol (Farxiga), 1 TAB PO DAILY, (Reported) Docusate Sodium (Docusate Sodium), 100 MG PO DAILY Donepezil Hydrochloride (Donepezil Hcl), 1 TAB PO DAILY, (Reported) Fenofibrate (Fenofibrate), 1 TAB PO DAILY, (Reported) Ferrous Sulfate (Ferrous Sulfate), 325 MG PO EOD Folic Acid (Folic Acid), 1 MG PO DAILY Gabapentin (Gabapentin), 1 CAP PO BID, (Reported) Levetiracetam (Levetiracetam), 1 TAB PO BID, (Reported) Memantine Hydrochloride (Memantine Hydrochloride E), 1 CAP PO DAILY, (Reported) Ropinirole Hydrochloride (Ropinirole Hcl), 1 TAB PO DAILY, (Reported) Discharge Statement: "Patient was advised to return to the ER or call 911 if any headaches, dizziness, shortness of breath, chest pain, abdominal pain, bleeding, fevers, or worsening of medical condition. Patient was counseled about treatment plan, medications, possible side effects, patientverbalized understanding. All questions were answered to the best of my ability. This discharge took greater then 30 minutes in planning, reviewing documentation, counseling the patient, and discussing with other team members." Date of Service: Jan 22, 2025 Billing Provider: KRISTEN FARLEY MD Common Visit Codes: [id number] DISCH DAY >30min KRISTEN FARLEY MD Jan 22, 2025 10:47
[2025-01-22] MEDS ORDERED: CARV6.2551 PO (19:02)
[2025-01-22] MEDS ORDERED: CARVEDILOL 3.125 MG TAB PO SCH (22:00)
== END 2025-01-22 18:00 | disposition home or self-care (01) | DRG 760 ==
LOC: ER 08:46 → OVERFLOW 12:14 → EAST 23:49
PROVIDERS: ADMIT Student in an Organized Health Care Education/Training Program; ATTEND Student in an Organized Health Care Education/Training Program
DX: N93.9 Abnormal uterine and vaginal bleeding, unspecified (principal); N39.0 Urinary tract infection, site not specified; R56.9 Unspecified convulsions; I10 Essential (primary) hypertension; E11.65 Type 2 diabetes mellitus with hyperglycemia; E78.5 Hyperlipidemia, unspecified; N95.0 Postmenopausal bleeding; I48.91 Unspecified atrial fibrillation; Z91.041 Radiographic dye allergy status; Z86.73 Personal history of transient ischemic attack (TIA), and cerebral infarction without residual deficits; Z79.01 Long term (current) use of anticoagulants; Z80.8 Family history of malignant neoplasm of other organs or systems; Z81.8 Family history of other mental and behavioral disorders
CPT/HCPCS: 36415; 76856; 80048; 80053; 81001; 82962; 83036; 85025; 85610; 86850; 86900; 86901; 87086; 96361; 96365; 96372; G0378; J1815